=== PATIENT | male | born 1985 | race American Indian/Alaskan Native ===

== ENCOUNTER 2018-12-23 09:36 | Emergency (ER) | payer OTHER ==
[2018-12-23 10:04] VITALS: BP 147/95
[2018-12-23] MEDS ORDERED: CYCLOBENZAPRINE 10 MG TAB PO ONE (11:45)
[2018-12-23] MEDS ORDERED: IBUPROFEN 800 MG TAB PO ONE (11:46)
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
== END 2018-12-23 12:31 | disposition home or self-care (01) ==
LOC: ED 09:36
DX: M54.2 Cervicalgia (principal); M54.6 Pain in thoracic spine; F17.200 Nicotine dependence, unspecified, uncomplicated; Z79.899 Other long term (current) drug therapy; V49.59XA Passenger injured in collision with other motor vehicles in traffic accident, initial encounter; Y93.89 Activity, other specified; Y92.410 Unspecified street and highway as the place of occurrence of the external cause; Y99.8 Other external cause status
CPT/HCPCS: 72072

== ENCOUNTER 2020-08-21 21:15 | Emergency (ER) | payer SELFPAY ==
[2020-08-21 21:34] VITALS: BP 143/92
--- NOTE | 2020-08-21 21:50 | Emergency Department Report ---
ED ENT HPI - General Chief complaint: Dental/Oral Stated complaint: JAW SWOLLEN FROM TOOTH Time Seen by Provider: 08/21/20 21:42 Source: patient Mode of arrival: Ambulatory Limitations: No Limitations - History of Present Illness Initial comments: Patient is a 34-year-old male presents emergency room complaints of right lower facial swelling that began early this morning. He states he has had right lower dental pain for couple months. He states he is not seen a dentist in approximately 10 years. He denies any fever, nausea, vomiting, diarrhea, di fficulty swallowing, difficulty breathing. No past medical history. No allergies to medications. - Related Data Previous Rx's Medication Instructions Recorded Last Taken Type Cyclobenzaprine [Flexeril] 10 mg PO TID PRN #12 tablet 12/23/18 Unknown Rx Ibuprofen [Motrin 800 MG tab] 800 mg PO Q8HR PRN #20 tablet 12/23/18 Unknown Rx Chlorhexidine Mouthwash [Peridex] 15 ml MM BID #1 bottle 08/21/20 Unknown Rx Clindamycin [Clindamycin CAP] 450 mg PO TID 7 Days #63 capsule 08/21/20 Unknown Rx Naproxen [EC-Naprosyn] 500 mg PO BID PRN #14 tablet. 08/21/20 Unknown Rx Allergies Allergy/AdvReac Type Severity Reaction Status Date / Time No Known Allergies Allergy Unverified 12/23/18 09:45 ED Dental HPI - General Chief complaint: Dental/Oral Stated complaint: JAW SWOLLEN FROM TOOTH Time Seen by Provider: 08/21/20 21:42 Source: patient Mode of arrival: Ambulatory Limitations: No Limitations - Related Data Previous Rx's Medication Instructions Recorded Last Taken Type Cyclobenzaprine [Flexeril] 10 mg PO TID PRN #12 tablet 12/23/18 Unknown Rx Ibuprofen [Motrin 800 MG tab] 800 mg PO Q8HR PRN #20 tablet 12/23/18 Unknown Rx Chlorhexidine Mouthwash [Peridex] 15 ml MM BID #1 bottle 08/21/20 Unknown Rx Clindamycin [Clindamycin CAP] 450 mg PO TID 7 Days #63 capsule 08/21/20 Unknown Rx Naproxen [EC-Naprosyn] 500 mg PO BID PRN #14 tablet. 08/21/20 Unknown Rx Allergies Allergy/AdvReac Type Severity Reaction Status Date / Time No Known Allergies Allergy Unverified 12/23/18 09:45 ED Review of Systems ROS: Stated complaint: JAW SWOLLEN FROM TOOTH Other details as noted in HPI Comment: All other systems reviewed and negative ED Past Medical Hx - Past Medical History Previous Medical History?: No - Surgical History Past Surgical History?: No - Social History Smoking Status: Current Every Day Smoker Substance Use Type: None - Medications Home Medications: Home Medications Medication Instructions Recorded Confirmed Last Taken Type Cyclobenzaprine [Flexeril] 10 mg PO TID PRN #12 tablet 12/23/18 Unknown Rx Ibuprofen [Motrin 800 MG tab] 800 mg PO Q8HR PRN #20 tablet 12/23/18 Unknown Rx Chlorhexidine Mouthwash [Peridex] 15 ml MM BID #1 bottle 08/21/20 Unknown Rx Clindamycin [Clindamycin CAP] 450 mg PO TID 7 Days #63 capsule 08/21/20 Unknown Rx Naproxen [EC-Naprosyn] 500 mg PO BID PRN #14 tablet. 08/21/20 Unknown Rx ED Physical Exam - General Limitations: No Limitations General appearance: alert, in no apparent distress - Head Head exam: Present: atraumatic, normocephalic - Eye Eye exam: Present: normal appearance - ENT ENT exam: Present: normal orophraynx (no submandibular edema), mucous membranes moist, other (there is a dental carry with partially cracked tooth present to the right lower molar, there is adjacent right lower gum edema, there is moderate right lower facial edema, no erythema of the face, no trismus, no tongue elevation, uvula is midline, no uvular edema or deviation, no muffled voice) - Neurological Exam Neurological exam: Present: alert, oriented X3 - Psychiatric Psychiatric exam: Present: normal affect, normal mood - Skin Skin exam: Present: warm, dry, intact ED Course Vital Signs 08/21/20 21:32 Temperature 98.0 F Pulse Rate 76 Respiratory 18 Rate Blood Pressure 143/92 O2 Sat by Pulse 97 Oximetry ED Medical Decision Making - Medical Decision Making Patient is a 34-year-old male presents emergency room complaints of right lower facial swelling that began early this morning. He states he has had right lower dental pain for couple months. He states he is not seen a dentist in approximately 10 years. He denies any fever, nausea, vomiting, diarrhea, difficulty swallowing, difficulty breathing. No past medical history. No allergies to medications. vss. on exam:there is a dental carry with partially cracked tooth present to the right lower molar, there is adjacent right lower gum edema, there is moderate right lower facial edema, no erythema of the face, no trismus, no tongue elevation, uvula is midline, no uvular edema or deviation, no muffled voice, no submandibular edema. Examination appears insistent with dental caries and dental abscess. Patient given prescription for medications. Advised patient Please take medication as prescribed. Increase your water intake. Please follow-up with a dentist. It is very important that you follow- up. Return to emergency room for new or symptoms. pt given a list of community dental resources. Critical care attestation.: If time is entered above; I have spent that time in minutes in the direct care of this critically ill patient, excluding procedure time. ED Disposition Clinical Impression: Dental caries, Dental abscess Disposition: TO HOME OR SELFCARE Is pt being admited?: No Does the pt Need Aspirin: No Condition: Stable Instructions: Dental Abscess Additional Instructions: Please take medication as prescribed. Increase your water intake. Please follow-up with a dentist. It is very important that you follow-up. Return to emergency room for new or symptoms. Prescriptions: Clindamycin [Clindamycin CAP] 450 mg PO TID 7 Days #63 capsule Naproxen [EC-Naprosyn] 500 mg PO BID PRN #14 tablet.dr JIMÉNEZ Reason: pain Chlorhexidine Mouthwash [Peridex] 15 ml MM BID #1 bottle Referrals: [facility] [Outside] - 2-3 Days [facility] [Outside] - 2-3 Days Time of Disposition: 21:49 Print Language: EQUATORIAL GUINEAN
== END 2020-08-21 22:17 | disposition home or self-care (01) ==
LOC: ED 21:15
DX: K04.7 Periapical abscess without sinus (principal); K02.9 Dental caries, unspecified; F17.200 Nicotine dependence, unspecified, uncomplicated; Z79.899 Other long term (current) drug therapy
CPT/HCPCS: 99281